=== PATIENT | female | born 1990 | race African-American/Black ===

== ENCOUNTER 2016-09-16 10:10 | Observation (INO) | payer OTHER ==
[2016-09-16 11:19] LABS: BASO % 0 % (0-3); EOS % 3 % (0-3); HEMATOCRIT 30.8 % (36.0-47.0); HEMOGLOBIN 10.3 g/dL (12.0-15.5); LYMPH # 1.8 x10^3/uL (1.0-4.8); LYMPH % 25 % (24-48); MEAN CORPUSCULAR HEMOGLOBIN 28 pg (25-35); MEAN CORPUSCULAR HGB CONC 34 g/dL (31-37); MEAN CORPUSCULAR VOLUME 83 fL (79-100); MONO % 6 % (0-9); NEUT % 66 % (31-73); PLATELET COUNT 190 x10^3/uL (140-400); RED BLOOD COUNT 3.72 x10^6/uL (3.50-5.40); RED CELL DISTRIBUTION WIDTH 14.5 % (11.5-14.5)
[2016-09-16 11:27] LABS: CALCIUM 8.8 mg/dL (8.5-10.1); CREATININE 0.6 mg/dL (0.6-1.0); GFR 146.2; POTASSIUM 3.6 mmol/L (3.5-5.1)
[2016-09-16 11:33] LABS: ALBUMIN 2.3 g/dL (3.4-5.0); ALBUMIN/GLOBULIN RATIO 0.6 (1.0-1.7); TOTAL BILIRUBIN 0.5 mg/dL (0.2-1.0); TOTAL PROTEIN 6.4 g/dL (6.4-8.2)
== END 2016-09-16 12:30 | disposition home or self-care (01) ==
LOC: 3 SO LND 10:10
PROVIDERS: ADMIT Obstetrics & Gynecology; ATTEND Obstetrics & Gynecology
DX: O13.3 Gestational [pregnancy-induced] hypertension without significant proteinuria, third trimester (principal); O24.419 Gestational diabetes mellitus in pregnancy, unspecified control; Z3A.34 34 weeks gestation of pregnancy
CPT/HCPCS: 36415; 80053; 85027; G0378; G0379; 59025

== ENCOUNTER 2016-09-23 16:13 | Observation (INO) | payer OTHER | END 2016-09-23 16:50 | disposition home or self-care (01) | LOC: 3 SO LND 16:13 | PROVIDERS: ADMIT Obstetrics & Gynecology; ATTEND Obstetrics & Gynecology | DX: O24.419 Gestational diabetes mellitus in pregnancy, unspecified control (principal); Z3A.00 Weeks of gestation of pregnancy not specified | CPT/HCPCS: G0378; G0379; 59025 ==

== ENCOUNTER 2016-10-05 17:41 | Observation (INO) | payer OTHER ==
[2016-10-05] MEDS ORDERED: IV RINGERS,LACTATED 1000ML 1,000 ML IV SCH (18:12)
== END 2016-10-05 18:45 | disposition home or self-care (01) ==
LOC: 3 SO LND 17:41
PROVIDERS: ADMIT Obstetrics & Gynecology; ATTEND Obstetrics & Gynecology
DX: O24.419 Gestational diabetes mellitus in pregnancy, unspecified control (principal); Z3A.36 36 weeks gestation of pregnancy
CPT/HCPCS: G0378; G0379; 59025

== ENCOUNTER 2016-10-14 07:21 | Inpatient (IN) | payer OTHER ==
[~2016-10-14] VITALS: Ht 167.6 cm; Wt 156.5 kg
[2016-10-14] MEDS ORDERED: MISOPROSTOL 25 MCG VG PRN (08:00)
[2016-10-14] MEDS ORDERED: fentaNYL PF VIAL 100 MCG/2 ML VIAL IV PRN (08:00)
[2016-10-14] MEDS ORDERED: IBUPROFEN 800 MG TABLET. PO PRN (08:00)
[2016-10-14] MEDS ORDERED: LIDOCAINE 1% PF 30 ML VIAL. INJ PRN (08:00)
[2016-10-14] MEDS ORDERED: BUTORPHANOL 2 MG/ML VIAL. IV PRN (08:00)
[2016-10-14] MEDS ORDERED: OXYTOCIN 30 UNIT/500 ML PREMIX 500 ML IV PRN (08:00)
[2016-10-14] MEDS ORDERED: IBUPROFEN 600 MG TABLET. PO PRN (08:00)
[2016-10-14] MEDS ORDERED: 0.9 % SODIUM CHLORIDE 10 ML DISP.SYRIN. IV PRN (08:00)
[2016-10-14 08:23] VITALS: BP 128/73
[2016-10-14] MEDS ORDERED: PENICILLIN G K 5,000,000 UNIT in IV NORMAL SALINE 100ML 100 ML IV ONE (08:30)
[2016-10-14] MEDS ORDERED: FLUT1DIS3 IH (08:36)
[2016-10-14] MEDS ORDERED: PROAIR HFA8.5 GM INH (08:36)
[2016-10-14] MEDS ORDERED: GLYB5TAB3 PO (08:36)
[2016-10-14 09:28] LABS: BASO # 0.1 x10^3/uL (0.0-0.2); BASO % 1 % (0-3); EOS % 3 % (0-3); HEMATOCRIT 30.6 % (36.0-47.0); HEMOGLOBIN 10.3 g/dL (12.0-15.5); LYMPH # 1.9 x10^3/uL (1.0-4.8); LYMPH % 30 % (24-48); MEAN CORPUSCULAR HEMOGLOBIN 27 pg (25-35); MEAN CORPUSCULAR HGB CONC 34 g/dL (31-37); MEAN CORPUSCULAR VOLUME 81 fL (79-100); MONO % 8 % (0-9); NEUT % 59 % (31-73); PLATELET COUNT 182 x10^3/uL (140-400); RED BLOOD COUNT 3.78 x10^6/uL (3.50-5.40); RED CELL DISTRIBUTION WIDTH 14.8 % (11.5-14.5); WHITE BLOOD COUNT 6.6 x10^3/uL (4.0-11.0)
[2016-10-14 12:29] LABS: BILIRUBIN,URINE NEGATIVE (NEG); GLUCOSE,URINE NEGATIVE (NEG); NITRITE,URINE NEGATIVE (NEG); PROTEIN,URINE NEGATIVE (NEG-TRACE)
--- NOTE | 2016-10-14 13:39 | PDOC1 ---
OB - History Hx of Present Care: Good Care Ultrasounds: Normal mid trimester US Obstetrical Complications: Gestational Diabetes Medical Complications: None Past Family/Social History * Past Medical, Surgical, Family and Obstetric Histories reviewed from chart. Rubella: Immune RPR/VDRL: Negative GBS Status: Positive HBsAG: Negative OB - Chief Complaint & HPI Date of Admission: Date of Admission: Oct 14, 2016 at 07:21 Chief Complaint/History : 2 Para: 1 EGA: 38 Reason for admission: induction of labor (GDM A2 poor control) Admission Nurse Assessment Rev: Yes Problems: OB - Admission Exam Physical Exam Vitals: VS - Last 72 Hours, by Label Date Time Temp Pulse Resp B/P Pulse Ox O2 Delivery O2 Flow Rate FiO2 10/14/16 08:23 98.6 93 20 128/73 98.6 HEENT: Normal Heart: Regular Rate Lungs: Clear Abdomen: Gravid, Non tender, Soft Extremities: Edema Reflexes: Normal Cervical Dilatation: Fingertip Effacement: 25% Station: -3 Membranes: Intact Heart Rate: Normal Accelerations: Accelerations Present Decelerations: No decelerations Contractions on Admission: None Text A: 38 wks IUP GDM A2 : poor control GBS positive IOL secondary GDM A2 P: Admit for IOL with cytotec. Start Pen G when regular contractions and cervical dilation. OG WARREN Jr, MD Oct 14, 2016 13:39
[2016-10-14] MEDS: PENICILLIN G K 2,500,000 UNIT in IV NORMAL SALINE 50ML 50 ML IV SCH (14:18)
[2016-10-14] MEDS: IV RINGERS,LACTATED 1000ML 1,000 ML IV PRN (17:34)
[2016-10-15] MEDS ORDERED: DINOPROSTONE 10 MG SUPP.VAG VG ONE (06:15)
[2016-10-15] MEDS: IV RINGERS,LACTATED 1000ML 1,000 ML IV PRN ×2 (12:55→15:55)
--- NOTE | 2016-10-15 16:39 | PDOC ---
OB Progress Note Date of Service 10/15/16 Time of Evaluation 1630 Notes Pt. feeling well. She had rest overnight. Cervidil was placed this at 9 am. Pt. is starting to feel contractions more. Lab Laboratory Tests Test 10/14/16 08:10 10/14/16 08:35 10/15/16 05:29 Urine Collection Type Unknown Urine Color Tere Urine Clarity Clear Urine pH 6.0 Urine Specific [place] 1.025 Urine Protein Negativemg/dL (NEG-TRACE) Urine Glucose (UA) Negativemg/dL (NEG) Urine Ketones (Stick) 15mg/dL (NEG) Urine Blood Negative (NEG) Urine Nitrite Negative (NEG) Urine Bilirubin Negative (NEG) Urine Urobilinogen Dipstick 1.0mg/dL (0.2 mg/dL) Urine Leukocyte Esterase Moderate (NEG) White Blood Count 6.6x10^3/uL (4.0-11.0) Red Blood Count 3.78x10^6/uL (3.50-5.40) Hemoglobin 10.3g/dL (12.0-15.5) Hematocrit 30.6% (36.0-47.0) Mean Corpuscular Volume 81fL (79-100) Mean Corpuscular Hemoglobin 27pg (25-35) Mean Corpuscular Hemoglobin Concent 34g/dL (31-37) Red Cell Distribution Width 14.8% (11.5-14.5) Platelet Count 182x10^3/uL (140-400) Neutrophils (%) (Auto) 59% (31-73) Lymphocytes (%) (Auto) 30% (24-48) Monocytes (%) (Auto) 8% (0-9) Eosinophils (%) (Auto) 3% (0-3) Basophils (%) (Auto) 1% (0-3) Neutrophils # (Auto) 3.9x10^3uL (1.8-7.7) Lymphocytes # (Auto) 1.9x10^3/uL (1.0-4.8) Monocytes # (Auto) 0.5x10^3/uL (0.0-1.1) Eosinophils # (Auto) 0.2x10^3/uL (0.0-0.7) Basophils # (Auto) 0.1x10^3/uL (0.0-0.2) Glucose Level 91mg/dL (70-99) Glucose (Fingerstick) 85mg/dL (70-99) Laboratory Tests Test 10/15/16 05:29 Glucose (Fingerstick) 85mg/dL (70-99) Medications Current Medications Sodium Chloride 3 ml 3 ml QSHIFT PRN IV AFTER MEDS AND BLOOD DRAWS; Start 10/14 at 08:00 Lactated Ringer's (Iv Lactated Ringers) 1,000 ml @ 125 mls/hr Q8H PRN IV PER PROTOCOL Last administered on 10/15/16 15:55; Start 10/14/16 at 08:00 Butorphanol Tartrate (Stadol) 2 mg PRN Q1HR PRN IV Severe labor pain; Start at 08:00 Fentanyl Citrate (Fentanyl 2ml Vial) 100 mcg PRN Q1HR PRN IV Severe pain; Start 10/14/16 at 08:00 Lidocaine HCl 30 ml 30 ml 1X PRN PRN INJ SEE COMMENTS; Start 10/14/16 at 08:00 ; Stop 10/16/16 at 07:59 Oxytocin/Sodium Chloride (Oxytocin Premix Infusion) 500 ml @ 0 mls/hr CONT PRN IV SEE I/O RECORD; Start 10/14/16 at 08:00 Misoprostol 25 mcg 25 mcg PRN Q4HRS PRN VG Cervical ripening Last administered on 10/14/16 08:53; Start 10/14/16 at 08:00 Oxytocin/Sodium Chloride (Oxytocin Premix Infusion) 500 ml @ 0 mls/hr CONT PRN PRN IV Post delivery bleeding; Start 10/14/16 at 08:00 Ibuprofen (Motrin) 600 mg PRN Q6HRS PRN PO PAIN; Start 10/14/16 at 08:00 Ibuprofen 800 mg 800 mg PRN Q6HRS PRN PO PAIN; Start 10/14/16 at 08:00 Penicillin G Potassium [id number] unit/Sodium Chloride 100 ml @ 100 mls/hr 1X ONCE IV Last administered on 10/14/16 09:04; Start 10/14/16 at 08:30; Stop at 09:29; Status DC Penicillin G Potassium/Sodium Chloride (Pfizerpen/Iv Sodium Chloride 0.9% 50ml) 50 ml @ 100 mls/hr Q4H IV Last administered on 4/21/17at 14:18; Start at 12:30 Dinoprostone (Cervidil) 10 mg 1X ONCE VG Last administered on 10/15/16 12:54 ; Start 10/15/16 at 06:15; Stop 10/15/16 at 06:16; Status DC Active Scripts Active Reported Proair Hfa Inhaler (Albuterol Sulfate) 8.5 Gm Hfa.aer.ad 1 Puff INH PRN BID PRN Advair 250-50 Diskus (Fluticasone/Salmeterol) 1 Each Disk.w.dev 1 Puff IH BID Glyburide 5 Mg Tablet 1 Tab PO BID Exam Abd: soft, non tender, palpable contractions. Pelvic: deferred. Cervidil in place. Assessment A: 38 wks IUP GDM A2: poor control GBS positive Plan of Care: Continue current Tx, Mgmt (Consider second dose of cervidil tonight and start pitocin tomorrow am.) OG WARREN Jr, MD Oct 15, 2016 16:39
[2016-10-16] MEDS: IV RINGERS,LACTATED 1000ML 1,000 ML IV PRN ×2 (08:51→17:38)
[2016-10-16] MEDS: OXYTOCIN 30 UNIT/500 ML PREMIX 500 ML IV PRN (08:51)
[2016-10-16] MEDS: PENICILLIN G K 2,500,000 UNIT in IV NORMAL SALINE 50ML 50 ML IV SCH ×3 (09:15→21:00)
--- NOTE | 2016-10-16 11:49 | PDOC ---
OB Progress Note Date of Service 10/16/16 Time of Evaluation 1145 Notes PT. feeling well and feeling more contractions. Lab Laboratory Tests Test 10/15/16 05:29 10/16/16 06:09 Glucose (Fingerstick) 85mg/dL (70-99) 85mg/dL (70-99) Laboratory Tests Test 10/16/16 06:09 Glucose (Fingerstick) 85mg/dL (70-99) Medications Current Medications Sodium Chloride 3 ml 3 ml QSHIFT PRN IV AFTER MEDS AND BLOOD DRAWS; Start 10/14 at 08:00 Lactated Ringer's (Iv Lactated Ringers) 1,000 ml @ 125 mls/hr Q8H PRN IV PER PROTOCOL Last administered on 10/16/16 08:51; Start 10/14/16 at 08:00 Butorphanol Tartrate (Stadol) 2 mg PRN Q1HR PRN IV Severe labor pain; Start at 08:00 Fentanyl Citrate (Fentanyl 2ml Vial) 100 mcg PRN Q1HR PRN IV Severe pain; Start 10/14/16 at 08:00 Lidocaine HCl 30 ml 30 ml 1X PRN PRN INJ SEE COMMENTS; Start 10/14/16 at 08:00 ; Stop 10/16/16 at 07:59; Status DC Oxytocin/Sodium Chloride (Oxytocin Premix Infusion) 500 ml @ 0 mls/hr CONT PRN IV SEE I/O RECORD Last administered on 10/16/16 08:51; Start 10/14/16 at 08:00 Misoprostol 25 mcg 25 mcg PRN Q4HRS PRN VG Cervical ripening Last administered on 10/14/16 08:53; Start 10/14/16 at 08:00 Oxytocin/Sodium Chloride (Oxytocin Premix Infusion) 500 ml @ 0 mls/hr CONT PRN PRN IV Post delivery bleeding; Start 10/14/16 at 08:00 Ibuprofen (Motrin) 600 mg PRN Q6HRS PRN PO PAIN; Start 10/14/16 at 08:00 Ibuprofen 800 mg 800 mg PRN Q6HRS PRN PO PAIN; Start 10/14/16 at 08:00 Penicillin G Potassium [id number] unit/Sodium Chloride 100 ml @ 100 mls/hr 1X ONCE IV Last administered on 10/14/16 09:04; Start 10/14/16 at 08:30; Stop at 09:29; Status DC Penicillin G Potassium/Sodium Chloride (Pfizerpen/Iv Sodium Chloride 0.9% 50ml) 50 ml @ 100 mls/hr Q4H IV Last administered on 10/16/16 09:15; Start at 12:30 Dinoprostone (Cervidil) 10 mg 1X ONCE VG Last administered on 10/15/16 12:54 ; Start 10/15/16 at 06:15; Stop 10/15/16 at 06:16; Status DC Active Scripts Active Reported Proair Hfa Inhaler (Albuterol Sulfate) 8.5 Gm Hfa.aer.ad 1 Puff INH PRN BID PRN Advair 250-50 Diskus (Fluticasone/Salmeterol) 1 Each Disk.w.dev 1 Puff IH BID Glyburide 5 Mg Tablet 1 Tab PO BID Exam Pelvic: AROM: large amount clear fluid Cvx: 3/60/-3, anterior IUPC and FSE placed without difficulty. Category 1 with contractions every 2-3 mins., Pitocin at 12 MilliUnits/ min. Assessment 38 wks IUP GDM A2 GBS positive Plan of Care: Continue current Tx, Mgmt OG WARREN Jr, MD Oct 16, 2016 11:49
[2016-10-16] MEDS ORDERED: IV RINGERS,LACTATED 1000ML 1,000 ML IV SCH (21:32)
[2016-10-16 21:34] LABS: HEMATOCRIT 32.3 % (36.0-47.0); HEMOGLOBIN 10.9 g/dL (12.0-15.5); RED BLOOD COUNT 3.97 x10^6/uL (3.50-5.40); RED CELL DISTRIBUTION WIDTH 14.8 % (11.5-14.5); WHITE BLOOD COUNT 8.8 x10^3/uL (4.0-11.0)
[2016-10-16] MEDS ORDERED: PROCHLORPERAZINE 10 MG/2 ML VIAL. IV PRN (21:45)
[2016-10-16] MEDS ORDERED: PHENYLEPHRINE in 0.9% NACL PF 1 MG/10 ML DISP.SYRIN. IV PRN (21:45)
[2016-10-16] MEDS ORDERED: ROPIVacaine 0.2% IN 0.9%NACL PF 40 MG/20 ML DISP.SYRIN. EPI PRN (21:45)
[2016-10-16] MEDS ORDERED: BUPIVACAINE MPF 0.25% 10 ML VIAL. EPI PRN (21:45)
[2016-10-16] MEDS ORDERED: NALOXONE 0.4 MG/ML VIAL. IV PRN (21:45)
[2016-10-16] MEDS ORDERED: ePHEDrine PF IN SALINE 50 MG/5 ML DISP.SYRIN IV PRN (21:45)
[2016-10-16] MEDS ORDERED: IV RINGERS,LACTATED 500ML 500 ML IV PRN (21:45)
[2016-10-16] MEDS ORDERED: diphenhydrAMINE 50 MG/ML VIAL IV PRN (21:45)
[2016-10-16] MEDS ORDERED: ONDANSETRON PF 4 MG/2 ML VIAL. IV PRN (21:45)
[2016-10-16] MEDS ORDERED: fentaNYL PF VIAL 100 MCG/2 ML VIAL EPI PRN (21:45)
[2016-10-16] MEDS: L&D EPIDURAL CASSETTE 100 ML EP PRN (22:20)
[2016-10-17] MEDS: PENICILLIN G K 2,500,000 UNIT in IV NORMAL SALINE 50ML 50 ML IV SCH ×2 (01:16→10:07)
[2016-10-17 02:10] LABS: RPR REFLEX Non Reactive (Non Reactive)
[2016-10-17] MEDS: IV RINGERS,LACTATED 1000ML 1,000 ML IV PRN ×2 (03:12→09:56)
[2016-10-17] MEDS: L&D EPIDURAL CASSETTE 100 ML EP PRN (05:48)
[2016-10-17] MEDS ORDERED: BUPIVACAINE MPF 0.25% 30 ML VIAL. ONE (06:27)
[2016-10-17] MEDS: OXYTOCIN 30 UNIT/500 ML PREMIX 500 ML IV PRN (10:07)
--- NOTE | 2016-10-17 11:52 | PDOC ---
VAGINAL DELIVERY DATE DATE: 10/17/16 TIME: 11:50 : 2 Para: 1 EDC: October 29, 2016 VAGINAL DELIVERY: VTX VACCUM ASSISTED: No PLACENTA: Spontaneous SEX: Male WEIGHT Weight [ ] Nuchal Cord: Yes, Times 1, Loose Amniotic Fluid: Clear PAIN: Epidural EPISIOTOMY: Yes EXTENSION: No EBL 300cc COMPLICATIONS none CONDITION Stable Signs of Intrauterine Infectio: None Shoulder Dystocia: No DIAGNOSIS TIUP del Problems: BREE BOLTON MD Oct 17, 2016 11:52
[2016-10-17] MEDS ORDERED: ZOLPIDEM 5 MG TABLET. PO PRN (12:00)
[2016-10-17] MEDS ORDERED: 0.9 % SODIUM CHLORIDE 10 ML DISP.SYRIN. IV PRN (12:00)
[2016-10-17] MEDS ORDERED: MAG HYDROX/ALUMINUM HYD/SIMETH 30 ML ORAL.SUSP PO PRN (12:00)
[2016-10-17] MEDS ORDERED: PHENYLEPH/MINERAL OIL/PETROLAT RECTAL OINTMENT 28GM TUBE. RC PRN (12:00)
[2016-10-17] MEDS ORDERED: OXYTOCIN 30 UNIT/500 ML PREMIX 500 ML IV PRN (12:00)
[2016-10-17] MEDS ORDERED: BENZOCAINE 20% TOPICAL AEROSOL SPRAY 57GM CAN. TP PRN (12:00)
[2016-10-17] MEDS ORDERED: HYDROCORTISONE 1% TOPICAL OINTMENT 30GM TUBE. TP PRN (12:00)
[2016-10-17] MEDS ORDERED: MAGNESIUM HYDROXIDE 2,400 MG/30 ML ORAL.SUSP. PO PRN (12:00)
[2016-10-17] MEDS ORDERED: diphenhydrAMINE HCL 25 MG CAPSULE PO PRN (12:00)
[2016-10-17] MEDS ORDERED: ACETAMINOPHEN 325 MG TABLET. PO PRN (12:00)
[2016-10-17] MEDS ORDERED: SIMETHICONE 80 MG TAB.CHEW PO PRN (12:00)
[2016-10-17 15:15] VITALS: BP 114/60
[2016-10-17] MEDS: IBUPROFEN 800 MG TABLET. PO SCH (17:17)
[2016-10-17 22:03] VITALS: BP 104/62
[2016-10-18] MEDS: IBUPROFEN 800 MG TABLET. PO SCH ×3 (00:56→17:39)
[2016-10-18 05:43] VITALS: BP 121/80
[2016-10-18] MEDS ORDERED: DOCUSATE SODIUM 100 MG CAPSULE. PO SCH (07:45)
[2016-10-18] MEDS: FERROUS SULFATE 325 MG TABLET. PO SCH ×2 (07:59→17:39)
--- NOTE | 2016-10-18 08:07 | PDOC ---
OB Progress Note Date of Service 10/18/16 Time of Evaluation 0805 Notes PT. feeling well. Pain controlled. Lochia minimal. Breast feeding with difficulty. Pt. is supplementing with bottle feedings. Encouraged more water intake, breast pumping and Fenu surinamese supplements. Lab Laboratory Tests Test 10/16/16 12:15 10/16/16 14:04 10/16/16 15:55 10/16/16 17:59 Glucose (Fingerstick) 62mg/dL (70-99) 71mg/dL (70-99) 63mg/dL (70-99) 71mg/dL (70-99) Test 10/16/16 20:18 10/16/16 21:27 10/16/16 22:26 10/17/16 01:01 Glucose (Fingerstick) 71mg/dL (70-99) 70mg/dL (70-99) 89mg/dL (70-99) White Blood Count 8.8x10^3/uL (4.0-11.0) Red Blood Count 3.97x10^6/uL (3.50-5.40) Hemoglobin 10.9g/dL (12.0-15.5) Hematocrit 32.3% (36.0-47.0) Mean Corpuscular Volume 81fL (79-100) Mean Corpuscular Hemoglobin 27pg (25-35) Mean Corpuscular Hemoglobin Concent 34g/dL (31-37) Red Cell Distribution Width 14.8% (11.5-14.5) Platelet Count 186x10^3/uL (140-400) Test 10/17/16 03:09 10/17/16 05:29 10/17/16 08:12 10/18/16 05:40 Glucose (Fingerstick) 74mg/dL (70-99) 77mg/dL (70-99) 83mg/dL (70-99) Hematocrit 25.7% (36.0-47.0) Laboratory Tests Test 10/17/16 08:12 10/18/16 05:40 Glucose (Fingerstick) 83mg/dL (70-99) Hematocrit 25.7% (36.0-47.0) Medications Current Medications Sodium Chloride 3 ml 3 ml QSHIFT PRN IV AFTER MEDS AND BLOOD DRAWS; Start 10/14 at 08:00 Lactated Ringer's (Iv Lactated Ringers) 1,000 ml @ 125 mls/hr Q8H PRN IV PER PROTOCOL Last administered on 10/17/16 09:56; Start 10/14/16 at 08:00 Butorphanol Tartrate (Stadol) 2 mg PRN Q1HR PRN IV Severe labor pain Last administered on 10/16/16 20:06; Start 10/14/16 at 08:00 Fentanyl Citrate (Fentanyl 2ml Vial) 100 mcg PRN Q1HR PRN IV Severe pain Last administered on 10/16/16 16:44; Start 10/14/16 at 08:00 Lidocaine HCl 30 ml 30 ml 1X PRN PRN INJ SEE COMMENTS; Start 10/14/16 at 08:00 ; Stop 10/16/16 at 07:59; Status DC Oxytocin/Sodium Chloride (Oxytocin Premix Infusion) 500 ml @ 0 mls/hr CONT PRN IV SEE I/O RECORD Last administered on 10/17/16 10:07; Start 10/14/16 at 08:00 Misoprostol 25 mcg 25 mcg PRN Q4HRS PRN VG Cervical ripening Last administered on 10/14/16 08:53; Start 10/14/16 at 08:00 Oxytocin/Sodium Chloride (Oxytocin Premix Infusion) 500 ml @ 0 mls/hr CONT PRN PRN IV Post delivery bleeding; Start 10/14/16 at 08:00 Ibuprofen (Motrin) 600 mg PRN Q6HRS PRN PO PAIN; Start 10/14/16 at 08:00 Ibuprofen 800 mg 800 mg PRN Q6HRS PRN PO PAIN; Start 10/14/16 at 08:00 Penicillin G Potassium [id number] unit/Sodium Chloride 100 ml @ 100 mls/hr 1X ONCE IV Last administered on 10/14/16 09:04; Start 10/14/16 at 08:30; Stop at 09:29; Status DC Penicillin G Potassium/Sodium Chloride (Pfizerpen/Iv Sodium Chloride 0.9% 50ml) 50 ml @ 100 mls/hr Q4H IV Last administered on 10/17/16 10:07; Start at 12:30 Dinoprostone 10 mg 10 mg 1X ONCE VG Last administered on 4/22/17at 12:54; Start 10/15/16 at 06:15; Stop 10/15/16 at 06:16; Status DC Lactated Ringer's 1,000 ml @ 1,000 mls/hr Q1H IV ; Start 10/16/16 at 21:32; Stop 10/16/16 at 22:31; Status DC Lactated Ringer's (Iv Lactated Ringers) 500 ml @ 500 mls/hr 1X PRN PRN IV HYPOTENSION; Start 10/16/16 at 21:45; Stop 10/17/16 at 21:44; Status DC Ephedrine Sulfate 10 mg PRN Q2MIN PRN IV IF SBP<90; Start 10/16/16 at 21:45 Phenylephrine HCl 0.05 mg PRN Q2MIN PRN IV SBP less than 90; Start 10/16/16 at 21:45 Naloxone HCl (Narcan) 0.04 mg PRN Q1MIN PRN IV SEE COMMENTS; Start 10/16/16 at 21:45 Fentanyl Citrate (Fentanyl 2ml Vial) 100 mcg PRN 1X PRN EPI FOR ANESTHESIA; Start 10/16/16 at 21:45; Stop 10/17/16 at 21:44; Status DC Bupivacaine HCl 10 ml 10 ml PRN 1X PRN EPI FOR ANESTHESIA; Start 10/16/16 at 21 :45; Stop 10/17/16 at 21:44; Status DC Ropivacaine/ Fentanyl/NS (Tzwussun-Cgnjc-JP 3 Mcg-0.1%) 100 ml @ 12 mls/hr CONT PRN EP PAIN Last administered on 10/17/16t 05:48; Start 10/16/16 at 21:45 Ondansetron HCl (Zofran) 4 mg PRN Q6HRS PRN IV NAUSEA/VOMITING; Start 10/16/16 at 21:45 Prochlorperazine Edisylate (Compazine) 5 mg PRN Q6HRS PRN IV NAUSEA/VOMITING; Start 10/16/16 at 21:45 Diphenhydramine HCl (Benadryl) 12.5 mg PRN Q2HR PRN IV ITCHING; Start 10/16/16 at 21:45 Ropivacaine 40 mg PRN 1X PRN EPI SEE COMMENTS Last administered on 10/16/16t 22 :20; Start 10/16/16 at 21:45; Stop 10/16/16 at 22:20; Status DC Bupivacaine HCl (Sensorcaine Mpf 0.25%) 30 ml STK-MED ONCE .ROUTE ; Start at 06:27; Stop 10/17/16 at 06:28; Status DC Sodium Chloride 10 ml 10 ml QSHIFT PRN IV AFTER MEDS AND BLOOD DRAWS; Start at 12:00 Oxytocin/Sodium Chloride (Oxytocin Premix Infusion) 500 ml @ 62.5 mls/hr CONT PRN IV SEE I/O RECORD; Start 10/17/16 at 12:00; Stop 10/17/16 at 19:59; Status DC Acetaminophen (Tylenol) 650 mg PRN Q6HRS PRN PO MILD PAIN / TEMP; Start at 12:00 Ibuprofen (Motrin) 800 mg Q8HRS PO Last administered on 10/18/16 08:00; Start 10/17/16 at 14:00 Magnesium Hydroxide (Milk Of Magnesia) 2,400 mg PRN DAILY PRN PO CONSTIPATION; Start 10/17/16 at 12:00 Al Hydroxide/Mg Hydroxide (Mylanta Plus Xs) 30 ml PRN Q4HRS PRN PO HEARTBURN / GAS; Start 10/17/16 at 12:00 Simethicone (Gas-X) 80 mg PRN AFTMEALHC PRN PO GAS / BLOATING; Start 10/17/16 at 12:00 Diphenhydramine HCl (Benadryl) 25 mg PRN Q6HRS PRN PO ITCHING; Start 10/17/16 at 12:00 Benzocaine (Americaine) 1 spray PRN QID PRN TP TOPICAL PAIN; Start 10/17/16 at 12:00 Phenyleph/Shark Oil/Min Oil/Petrol (Preparation H) 1 marcus PRN QID PRN RC RECTAL PAIN; Start 10/17/16 at 12:00 Hydrocortisone (Cortaid) 1 marcus PRN QID PRN TP RECTAL PAIN; Start 10/17/16 at 12 :00 Ferrous Sulfate (Feosol) 325 mg BIDWMEALS PO Last administered on 10/18/16 07: 59; Start 10/17/16 at 17:00 Zolpidem Tartrate (Ambien) 5 mg PRN QHS PRN PO INSOMNIA, MAY REPEAT X1; Start 10/17/16 at 12:00 Info (Do NOT chart on this placeholder) 1 ea 1X PRN PRN MC SEE COMMENTS; Start 10/17/16 at 12:00 Acetaminophen/ Hydrocodone Bitart (Lortab 5/325) 1 tab PRN Q4HRS PRN PO PAIN; Start 10/17/16 at 12:00 Docusate Sodium (Colace) 100 mg PRN BID PO ; Start 10/18/16 at 07:45 Active Scripts Active Reported Proair Hfa Inhaler (Albuterol Sulfate) 8.5 Gm Hfa.aer.ad 1 Puff INH PRN BID PRN Advair 250-50 Diskus (Fluticasone/Salmeterol) 1 Each Disk.w.dev 1 Puff IH BID Glyburide 5 Mg Tablet 1 Tab PO BID Exam Abd: soft, non tender, fundus firm Assessment PPD#1 s/p Plan of Care: Continue current Tx, Mgmt OG WARREN Jr, MD Oct 18, 2016 08:07
[2016-10-18] MEDS: DOCUSATE SODIUM 100 MG CAPSULE. PO PRN ×2 (09:34→17:39)
[2016-10-18 16:02] VITALS: BP 120/68
[2016-10-18] MEDS: HYDROCODONE/APAP 5/325MG TABLET. PO PRN (19:46)
[2016-10-18 23:15] VITALS: BP 121/71
[2016-10-19] MEDS ORDERED: PNEUMOCOCCAL VAX SCREEN BY RX. MC PRN (05:15)
[2016-10-19 05:55] VITALS: BP 133/76
[2016-10-19] MEDS: IBUPROFEN 800 MG TABLET. PO SCH (07:32)
[2016-10-19] MEDS: DOCUSATE SODIUM 100 MG CAPSULE. PO PRN (07:32)
[2016-10-19] MEDS: FERROUS SULFATE 325 MG TABLET. PO SCH (07:33)
[2016-10-19] MEDS: HYDROCODONE/APAP 5/325MG TABLET. PO PRN ×2 (07:35→11:47)
[2016-10-19] MEDS ORDERED: DIPHTH,PERTUSS(ACELL),TET TOX 0.5 ML DISP.SYRIN. VAX IM ONE (09:00)
[2016-10-19] MEDS ORDERED: PNEUMOC CONJ VACC 23-VALENT 0.5 ML VIAL. VAX IM ONE (09:00)
[2016-10-19 11:56] VITALS: BP 152/99
--- NOTE | 2016-10-19 13:45 | PDOC ---
OB Progress Note Date of Service 10/19/16 Time of Evaluation 1345 Notes PT. feeling well. No complaints. Lab Laboratory Tests Test 10/18/16 05:40 Hematocrit 25.7% (36.0-47.0) Medications Current Medications Sodium Chloride 3 ml 3 ml QSHIFT PRN IV AFTER MEDS AND BLOOD DRAWS; Start 10/14 at 08:00 Lactated Ringer's (Iv Lactated Ringers) 1,000 ml @ 125 mls/hr Q8H PRN IV PER PROTOCOL Last administered on 10/17/16 09:56; Start 10/14/16 at 08:00 Butorphanol Tartrate (Stadol) 2 mg PRN Q1HR PRN IV Severe labor pain Last administered on 10/16/16 20:06; Start 10/14/16 at 08:00 Fentanyl Citrate (Fentanyl 2ml Vial) 100 mcg PRN Q1HR PRN IV Severe pain Last administered on 10/16/16 16:44; Start 10/14/16 at 08:00 Lidocaine HCl 30 ml 30 ml 1X PRN PRN INJ SEE COMMENTS; Start 10/14/16 at 08:00 ; Stop 10/16/16 at 07:59; Status DC Oxytocin/Sodium Chloride (Oxytocin Premix Infusion) 500 ml @ 0 mls/hr CONT PRN IV SEE I/O RECORD Last administered on 10/17/16 10:07; Start 10/14/16 at 08:00 Misoprostol 25 mcg 25 mcg PRN Q4HRS PRN VG Cervical ripening Last administered on 10/14/16 08:53; Start 10/14/16 at 08:00 Oxytocin/Sodium Chloride (Oxytocin Premix Infusion) 500 ml @ 0 mls/hr CONT PRN PRN IV Post delivery bleeding; Start 10/14/16 at 08:00 Ibuprofen (Motrin) 600 mg PRN Q6HRS PRN PO PAIN; Start 10/14/16 at 08:00 Ibuprofen 800 mg 800 mg PRN Q6HRS PRN PO PAIN; Start 10/14/16 at 08:00 Penicillin G Potassium [id number] unit/Sodium Chloride 100 ml @ 100 mls/hr 1X ONCE IV Last administered on 10/14/16 09:04; Start 10/14/16 at 08:30; Stop at 09:29; Status DC Penicillin G Potassium/Sodium Chloride (Pfizerpen/Iv Sodium Chloride 0.9% 50ml) 50 ml @ 100 mls/hr Q4H IV Last administered on 10/17/16 10:07; Start at 12:30 Dinoprostone 10 mg 10 mg 1X ONCE VG Last administered on 10/15/16 12:54; Start 10/15/16 at 06:15; Stop 10/15/16 at 06:16; Status DC Lactated Ringer's 1,000 ml @ 1,000 mls/hr Q1H IV ; Start 10/16/16 at 21:32; Stop 10/16/16 at 22:31; Status DC Lactated Ringer's (Iv Lactated Ringers) 500 ml @ 500 mls/hr 1X PRN PRN IV HYPOTENSION; Start 10/16/16 at 21:45; Stop 10/17/16 at 21:44; Status DC Ephedrine Sulfate 10 mg PRN Q2MIN PRN IV IF SBP<90; Start 10/16/16 at 21:45 Phenylephrine HCl 0.05 mg PRN Q2MIN PRN IV SBP less than 90; Start 10/16/16 at 21:45 Naloxone HCl (Narcan) 0.04 mg PRN Q1MIN PRN IV SEE COMMENTS; Start 10/16/16 at 21:45 Fentanyl Citrate (Fentanyl 2ml Vial) 100 mcg PRN 1X PRN EPI FOR ANESTHESIA; Start 10/16/16 at 21:45; Stop 10/17/16 at 21:44; Status DC Bupivacaine HCl 10 ml 10 ml PRN 1X PRN EPI FOR ANESTHESIA; Start 10/16/16 at 21 :45; Stop 10/17/16 at 21:44; Status DC Ropivacaine/ Fentanyl/NS (Ophttbnq-Stjdv-VB 3 Mcg-0.1%) 100 ml @ 12 mls/hr CONT PRN EP PAIN Last administered on 10/17/16 05:48; Start 10/16/16 at 21:45 Ondansetron HCl (Zofran) 4 mg PRN Q6HRS PRN IV NAUSEA/VOMITING; Start 10/16/16 at 21:45 Prochlorperazine Edisylate (Compazine) 5 mg PRN Q6HRS PRN IV NAUSEA/VOMITING; Start 10/16/16 at 21:45 Diphenhydramine HCl (Benadryl) 12.5 mg PRN Q2HR PRN IV ITCHING; Start 10/16/16 at 21:45 Ropivacaine 40 mg PRN 1X PRN EPI SEE COMMENTS Last administered on 10/16/16 22 :20; Start 10/16/16 at 21:45; Stop 10/16/16 at 22:20; Status DC Bupivacaine HCl (Sensorcaine Mpf 0.25%) 30 ml STK-MED ONCE .ROUTE ; Start at 06:27; Stop 10/17/16 at 06:28; Status DC Sodium Chloride 10 ml 10 ml QSHIFT PRN IV AFTER MEDS AND BLOOD DRAWS; Start at 12:00 Oxytocin/Sodium Chloride (Oxytocin Premix Infusion) 500 ml @ 62.5 mls/hr CONT PRN IV SEE I/O RECORD; Start 10/17/16 at 12:00; Stop 10/17/16 at 19:59; Status DC Acetaminophen (Tylenol) 650 mg PRN Q6HRS PRN PO MILD PAIN / TEMP Last administered on 10/18/16 11:30; Start 10/17/16 at 12:00 Ibuprofen (Motrin) 800 mg Q8HRS PO Last administered on 10/19/16 07:32; Start 10/17/16 at 14:00 Magnesium Hydroxide (Milk Of Magnesia) 2,400 mg PRN DAILY PRN PO CONSTIPATION; Start 10/17/16 at 12:00 Al Hydroxide/Mg Hydroxide (Mylanta Plus Xs) 30 ml PRN Q4HRS PRN PO HEARTBURN / GAS; Start 10/17/16 at 12:00 Simethicone (Gas-X) 80 mg PRN AFTMEALHC PRN PO GAS / BLOATING; Start 10/17/16 at 12:00 Diphenhydramine HCl (Benadryl) 25 mg PRN Q6HRS PRN PO ITCHING; Start 10/17/16 at 12:00 Benzocaine (Americaine) 1 spray PRN QID PRN TP TOPICAL PAIN; Start 10/17/16 at 12:00 Phenyleph/Shark Oil/Min Oil/Petrol (Preparation H) 1 marcus PRN QID PRN RC RECTAL PAIN; Start 10/17/16 at 12:00 Hydrocortisone (Cortaid) 1 marcus PRN QID PRN TP RECTAL PAIN; Start 10/17/16 at 12 :00 Ferrous Sulfate (Feosol) 325 mg BIDWMEALS PO Last administered on 10/19/16 07: 33; Start 10/17/16 at 17:00 Zolpidem Tartrate (Ambien) 5 mg PRN QHS PRN PO INSOMNIA, MAY REPEAT X1; Start 10/17/16 at 12:00 Info (Do NOT chart on this placeholder) 1 ea 1X PRN PRN MC SEE COMMENTS; Start 10/17/16 at 12:00; Status Cancel Acetaminophen/ Hydrocodone Bitart (Lortab 5/325) 1 tab PRN Q4HRS PRN PO PAIN Last administered on 10/19/16 11:47; Start 10/17/16 at 12:00 Docusate Sodium (Colace) 100 mg PRN BID PO ; Start 10/18/16 at 07:45; Stop at 09:32; Status DC Docusate Sodium (Colace) 100 mg PRN BID PRN PO CONSTIPATION Last administered on 10/19/16 07:32; Start 10/18/16 at 09:45 Pneumococcal Polyvalent Vaccine (Do NOT chart on this placeholder) 1 each PRN 1X PRN MC SEE COMMENTS; Start 10/19/16 at 05:15; Status UNV Diphtheria/ Tetanus/Acell Pertussis (Boostrix) 0.5 ml ONCE ONCE VAX IM Last administered on 10/19/16 07:43; Start 10/19/16 at 09:00; Stop 10/19/16 at 09:01 ; Status DC Pneumococcal Polyvalent Vaccine (Pneumovax 23) 0.5 ml ONCE ONCE VAX IM ; Start 10/19/16 at 09:00; Stop 10/19/16 at 09:01; Status DC Active Scripts Active Reported Proair Hfa Inhaler (Albuterol Sulfate) 8.5 Gm Hfa.aer.ad 1 Puff INH PRN BID PRN Advair 250-50 Diskus (Fluticasone/Salmeterol) 1 Each Disk.w.dev 1 Puff IH BID Glyburide 5 Mg Tablet 1 Tab PO BID Exam Abd: soft, non tender, fundus firm Assessment PPD#2 s/p Plan of Care: See new orders (D/c home) OG WARREN Jr, MD Oct 19, 2016 13:45
--- NOTE | 2016-10-19 13:46 | DISCH ---
DISCHARGE INSTRUCTIONS Condition on Discharge Condition on Discharge: Stable Activity After Discharge Activity Instructions for Disc: Activity as tolerated Lifting Instructions after Dis: No heavy lifting Driving Instructions after Dis: Do not drive today Diet after Discharge Diet after Discharge: Regular Contacting the DRTruman after DC Call your doctor for: Concerns you may have Follow-Up Follow up with: Dr. Sheikh in 6 wks OG SHEIKH Jr, MD Oct 19, 2016 13:46
[2016-10-19] MEDS ORDERED: IBUP-1060 PO (13:47)
[2016-10-19] MEDS ORDERED: OXYC-323 PO (13:47)
[2016-10-19 16:00] VITALS: BP 132/88
--- NOTE | 2016-10-24 13:53 | PATHOLOGY ---
PATHOLOGY REPORT * * * * * * * * FINAL DIAGNOSIS: Early term placenta of an estimated 38-39 weeks gestation with attached membranes and umbilical cord: - Large placenta (weight 593 grams). COMMENT: There is no evidence of an acute chorioamnionitis. There is no evidence of villitis. (LOUISAM:; d/t: 10/24/16) REPORT ELECTRONICALLY SIGNED BY: Graham Daniels M.D. DATE/TIME: 10/24/2016 13:04 * * * * * * * * GROSS PATHOLOGY: Received in formalin labeled Marcel is a 16.9 x 15.0 x 3.0 cm pavon placenta with a 34 cm long umbilical cord. The three-vessel umbilical cord inserts paracentrally with 3 twists per 5-6 cm. The placental membranes are bluish arias with marginal insertion. The point of rupture is 3 cm from the edge of the disc. The maternal surface of the specimen is intact. The placenta weighs 593 g. Sectioning through the specimen reveals a red beefy unremarkable cut surface. Section code: [id number] sections from umbilical cord and membranes, [id number] section adjacent to umbilical cord insertion site, A3 through [id number] patient accounting representative sections of placenta full thickness each. (AKA; 10/21/2016) INITIAL CPT CODE(S): A; 72054 Professional services performed [place] [address] Technical services performed by [facility] at [address] [place] [address], [facility] [address], [place] [address]. SPECIMEN(S) RECEIVED: A.Placenta CLINICAL HISTORY: , , gestational diabetes, EDC 10/27/16, 9lb 4 oz male @ 1134 on 10/17/16, apgars 8-9 PATIENT: ИВАН MONTE /AGE: 903/25/1990 (Age: 26) PATIENT #: [id number] ALT CASE #: SPECIMEN COLLECTION DATE: 10/17/2016 SPECIMEN RECEIVED DATE: 10/18/2016 [facility] - [address] [place] [address] - PHONE: [phone] * * * END OF REPORT * * *
== END 2016-10-19 17:15 | disposition home or self-care (01) | DRG 775 ==
LOC: 3 SO LND 07:21 → 3 NORTH 10-17 13:47
PROVIDERS: ADMIT Obstetrics & Gynecology; ATTEND Obstetrics & Gynecology
PROC: 10E0XZZ Delivery of Products of Conception, External Approach (ICD-10-PCS; principal; 2016-10-16)
PROC: 0W8NXZZ Division of Female Perineum, External Approach (ICD-10-PCS; 2016-10-16)
PROC: 3E0S3CZ (ICD-10-PCS; 2016-10-16)
PROC: 00HU33Z Insertion of Infusion Device into Spinal Canal, Percutaneous Approach (ICD-10-PCS; 2016-10-16)
PROC: 5A09357 Assistance with Respiratory Ventilation, Less than 24 Consecutive Hours, Continuous Positive Airway Pressure (ICD-10-PCS; 2016-10-17)
DX: O24.429 Gestational diabetes mellitus in childbirth, unspecified control (principal); O99.824 Streptococcus B carrier state complicating childbirth; O75.89 Other specified complications of labor and delivery; O69.81X0 Labor and delivery complicated by cord around neck, without compression, not applicable or unspecified; O70.9 Perineal laceration during delivery, unspecified; Z3A.38 38 weeks gestation of pregnancy; Z37.0 Single live birth; Z91.040 Latex allergy status
CPT/HCPCS: 36415; 81003; 82947; 85014; 85027; 86593; 86850; 86900; 86901; 88307; 90715; J2540; J2590; J2795; J3010; J7120

== ENCOUNTER → 2020-06-23 | Outpatient (CLI) | payer MEDICAID ==
[~2020-06-23] MED LIST: ALBU2.5V8 INH; FLUT1DIS3 IH; GLYB5TAB3 PO; IBUP-1060 PO; OXYC1TAB15 PO
--- NOTE | 2020-06-24 09:27 | SLEEP ---
DATE OF STUDY: 06/23/2020 SLEEP STUDY REFERRED BY: SUZANNA Santana The patient is 30 years old who weighs 330 pounds with a BMI of 54. The patient's Ethel score is 15. The patient underwent split night study performed at [facility]. During the night study, the patient spent 425 minutes in bed and slept for 363 minutes with a sleep efficiency of 85%. Sleep latency was 25 minutes with a REM latency of 157 minutes. Sleep architecture showed normal stage 1 and stage 2 sleep, increased slow wave and normal REM sleep. During the initial diagnostic portion of the study, the patient slept for 63 minutes. During that time, the patient had 9 mixed apneas, 2 central apneas, 79 obstructive apneas and 23 hypopneas. The patient's AHI was 109 per hour with an absent supine and REM sleep during the diagnostic portion. EKG monitoring revealed a mean heart rate of 73 beats per minute, no sustained arrhythmias observed. Nocturnal oximetry study revealed a mean oxygen saturation of 96%; the lowest of 70%. At 12% of time oxygen saturation remained between 80% and 89%. No PLMs observed. The patient met the criteria for CPAP initiation. It was started at 5 cm water and titrated up to 9 cm water. At the final pressure, the patient slept for 285 minutes. The patient had supine as well as REM sleep. The patient's AHI was reduced to 0 per hour and oxygen saturation remained above 92%. IMPRESSION: 1. Severe obstructive sleep apnea at an AHI of 109 per hour. 2. Nocturnal hypoxia secondary to obstructive sleep apnea, but resolved with CPAP. 3. No clinically significant periodic limb movements. RECOMMENDATIONS: 1. CPAP at 9 cm water completely eliminated the patient's sleep apnea and should be used on a nightly basis. The patient used medium size nasal mask. 2. Follow up in 4-6 weeks to assess compliance with CPAP and to document clinical improvement. 3. Weight loss is strongly advised. 4. Avoid CAMEL[employer] depressants. 5. Cautioned regarding driving until symptoms of sleep apnea resolve with the use of CPAP. MEET VAN MD DR: LALA/romeo JOB#: [id number] / [id number] KEREN Mar
== END ==
LOC: RT 19:03
PROVIDERS: ATTEND Physician Assistant Medical
DX: G47.33 Obstructive sleep apnea (adult) (pediatric) (principal); G47.34 Idiopathic sleep related nonobstructive alveolar hypoventilation
CPT/HCPCS: 95810; 95811